=== PATIENT | female | born 1945 | race Caucasian/White ===

== ENCOUNTER 2016-03-29 09:07 | Observation (INO) | payer OTHER, MEDICARE ==
[2016-03-26 12:19] LABS: BASOPHILS 0.8 %; BASOPHILS ABSOLUTE 0.07 10/3/uL (0.0-0.16); EOSINOPHILS 3.3 %; EOSINOPHILS ABSOLUTE 0.29 10/3/uL (0.0-0.53); HEMATOCRIT 40.2 % (36.0-48.0); HEMOGLOBIN 13.4 g/dL (12.0-16.0); IMMATURE GRANULOCYTES 0.2 %; IMMATURE GRANULOCYTES ABSOLUTE 0.02 10/3/uL (0.0-0.11); LYMPHOCYTES 31.2 %; LYMPHOCYTES ABSOLUTE 2.72 10/3/uL (0.67-4.30); MEAN CORPUS HGB CONC 33.3 g/dL (32.0-36.0); MEAN CORPUSCULAR HEMOGLOB 31.8 pg (26.0-34.0); MEAN CORPUSCULAR VOLUME 95.5 fL (80-100); MEAN PLATELET VOLUME 10.4 fL (9.2-13.0); MONOCYTES 6.7 %; MONOCYTES ABSOLUTE 0.58 10/3/uL (0.21-1.20); NEUTROPHILS 57.8 %; NEUTROPHILS ABSOLUTE 5.03 10/3/uL (2.02-8.40); PLATELET COUNT 290 10/3/uL (150-400); RBC DISTRIBUTION WIDTH 13.4 % (12.0-16.0); RED CELL COUNT 4.21 10/6/uL (4.0-5.6); WHITE BLOOD CELLS 8.7 10/3/uL (4.5-10.5)
[2016-03-26 12:20] LABS: MANUAL DIFF NO %
[2016-03-26 12:35] LABS: A/G RATIO 1.1 (0.7-1.9); ALBUMIN 3.9 G/DL (3.5-5.0); ALKALINE PHOSPHATASE 88 U/L (45-117); BUN (BLOOD UREA NITROGEN) 18 MG/DL (6-23); CHLORIDE, SERUM 103 MMOL/L (96-112); CO2 (CARBON DIOXIDE) 29 MMOL/L (24-34); CREATININE 0.89 MG/DL (0.55-1.02); GFR AFRICAN AMERICAN 76 ML/MIN (>=60); GFR NON AFRICAN AMERICAN 65 ML/MIN (>=60); GLOBULIN 3.5 G/DL (2.5-4.1); GLUCOSE, SERUM 83 MG/DL (60-99); POTASSIUM, SERUM 4.6 MMOL/L (3.5-5.3); SGOT(AST) 20 U/L (5-40); SGPT(ALT) 20 U/L (5-65); SODIUM, SERUM 141 MMOL/L (135-148); TOTAL BILIRUBIN 0.5 MG/DL (0-1.2); TOTAL PROTEIN 7.4 G/DL (6.0-8.5)
--- NOTE | ~2016-03-29 | PREOPHP ---
PreOp History and Physical [address] [place]. [address] NAME: VALORIE LYNCH : 43 STATUS : PRE [facility] PAT#: [id number] AGE: 70 ADM/REG DATE : MR#: [id number] REPORT SERV DATE: 03/29/16 DICTATED BY: LAURIE RAMOS III DATE: 03/12/16 REPORT STATUS : Draft TRANSCRIBED BY: MODL DATE: 03/12/16 HISTORY OF PRESENT ILLNESS: This 70-year-old female comes to the operating room for repair of a symptomatic incisional hernia. The patient has an incisional hernia over her mid abdomen. This hernia is located at the superior aspect of her previous midline incision in the periumbilical area. The hernia is associated with local pain and discomfort. The patient has had no nausea, vomiting, or obstructive symptoms. She comes to the operating room now for repair of this hernia. The patient had a previous sigmoid colectomy performed for perforated sigmoid colon in September 2009. PAST MEDICAL HISTORY: 1. Hypothyroidism. 2. History of mitral valve repair. 3. Fibromyalgia. 4. History of sigmoid colectomy secondary to perforation in September of 2009. PAST SURGICAL HISTORY: Includes mitral valve repair in January 2015, sigmoid colectomy in September 2009, left inguinal hernia in July of 2013. ALLERGIES: NONE. MEDICATIONS: Aspirin, tramadol, Xanax, MiraLAX, meloxicam, Lasix, potassium, metoprolol, gabapentin. SOCIAL HISTORY: The patient is . She is a pharmacist. She lives in [place], [place]. She has no history of tobacco or alcohol use. FAMILY HISTORY: Remarkable for stroke. REVIEW OF SYSTEMS: The patient complains of fatigue and joint pain. Her 14-point review of systems is otherwise unremarkable. PHYSICAL EXAMINATION: GENERAL: This is a female in no acute distress. She is alert and oriented x3. VITAL SIGNS: Blood pressure 118/73, pulse 62, temperature 97.3. HEENT: Unremarkable. Cranial nerves II through XII are normal. LUNGS: Clear. CARDIAC: Normal. ABDOMEN: Soft and nontender. The patient has incisional hernia beginning in the umbilical area and continuing superiorly. The fascial defect is some 3-4 cm in size. The hernia is reducible. EXTREMITIES: Normal. ASSESSMENT: 1. This is a 70-year-old female with symptomatic incisional hernia. 2. History of mitral valve repair. 3. Fibromyalgia. PreOp History and Physical [address] [address] NAME: VALORIE LYNCH : 43 STATUS : PRE [facility] PAT#: [id number] AGE: 70 ADM/REG DATE : MR#: [id number] REPORT SERV DATE: 03/29/16 DICTATED BY: LAURIE RAMOS III DATE: 03/12/16 REPORT STATUS : Draft TRANSCRIBED BY: TODD DATE: 03/12/16 4. History of sigmoid colectomy for perforated sigmoid colon. 5. Hypothyroidism. PLAN: The patient comes to the operating room now for repair of this incisional hernia. This procedure, the risks, benefits, and alternatives, including not limited to the risk for bleeding, infection, enterotomy, injury to any abdominal structure, postop small bowel obstruction, ileus, incisional hernia recurrence, seroma formation or hematoma formation, need for use of mesh, risk of infection of the mesh or enterocutaneous fistula requiring removal of the mesh, and unforeseen complications including deep venous thrombosis, pulmonary embolus, myocardial infarction, stroke, pneumonia, and , have been fully and completely explained to the patient prior to surgery. The fact that this is a major operation with risk for major morbidity and mortality has been explained. The expected length of recovery has been explained. The patient's questions have been answered. She clearly understands the risks and agrees to surgery as planned. JUSTIN/TODD Laurie Ramos III, M.D. / [id number] CC: Crista Almanza III, M.D.
--- NOTE | ~2016-03-29 | OP ---
Record Of Operation [facility] [address] [place]. [address] NAME: VALORIE LYNCH : 43 STATUS : ADM IN [facility]#: [id number] AGE: 70 ADM/REG DATE : 03/29/16 MR#: [id number] REPORT SERV DATE: 03/29/16 DICTATED BY: LAURIE VILLATORO III DATE: 03/29/16 REPORT STATUS : Draft TRANSCRIBED BY: MODL DATE: 03/29/16 DATE OF PROCEDURE: 03/29/2016 PREOPERATIVE DIAGNOSIS: Symptomatic periumbilical incisional hernia. POSTOPERATIVE DIAGNOSIS: Symptomatic periumbilical incisional hernia. PROCEDURE: Repair of symptomatic periumbilical incisional hernia. SURGEON: Dr. Laurie Villatoro. ANESTHESIA: General with intubation. COMPLICATIONS: None. ESTIMATED BLOOD LOSS: Less than 5 mL. SPECIMENS: None. DRAINS: None. LAP AND SPONGE COUNT: Correct x3. BRIEF HISTORY: This 70-year-old female presented with a periumbilical symptomatic incisional hernia. It was felt that repair of this hernia was indicated. This procedure, the risks, benefits, and alternatives, including not limited to the risk for bleeding, infection, enterotomy, injury to abdominal structure, postop small bowel obstruction, ileus, recurrence of the hernia, seroma formation, hematoma formation, possible need for use of mesh with risk of infection to the mesh or enterocutaneous fistula requiring removal of the mesh, and unforeseen complications including deep venous thrombosis, pulmonary embolus, myocardial infarction, stroke, pneumonia, and , were explained to the patient prior to surgery. The expected length of recovery was explained. The patient's questions were answered. She fully understood the risks and agreed to surgery as planned. DESCRIPTION OF PROCEDURE: After being appropriately identified and after discussing the risks of surgery with her and her family again in the preoperative area and after carefully identifying the hernia with her help in the preoperative area, the patient was taken to the operating room and placed in the supine position on the operating room table. General anesthesia was administered. She was intubated without difficulty. The abdomen was prepped and draped sterilely in the usual fashion. After an appropriate "time-out" per JCAHO standards, a midline incision was made over the hernia, beginning just above the navel and continuing to just below the navel, over the previous incision and continued slightly above the incision. The incision was continued through the subcutaneous tissue. Hemostasis was controlled with cautery. The fascial defect was identified. The defect was fairly small, perhaps 2 cm in size. Using sharp dissection, the skin and subcutaneous tissue around the defect anteriorly was fully mobilized for several centimeters. The underside of the defect Record Of Operation [facility] [address] [place]. [address] NAME: VALORIE LYNCH : 43 STATUS : ADM IN PAT#: [id number] AGE: 70 ADM/REG DATE : 03/29/16 MR#: [id number] REPORT SERV DATE: 03/29/16 DICTATED BY: LAURIE VILLATORO III DATE: 03/29/16 REPORT STATUS : Draft TRANSCRIBED BY: TODD DATE: 03/29/16 was cleared of all adhesions around the entire periphery of the fascia posteriorly. Hemostasis was meticulously assured. The fascia itself was fairly loose and attenuated. The fascial edges were then reapproximated with interrupted #1 Prolene sutures. The fascia came together nicely with no tension. A [id number] type repair was performed. It was felt that mesh repair was not required because of the easy closure of the fascia and the laxity of the fascia. Hemostasis was assured. The subcutaneous tissue was closed with a running 3-0 chromic suture. The skin was closed with running subcuticular 4-0 Monocryl stitch. The incision was injected with 0.5% Marcaine. Dressings were applied. Anesthesia was reversed. The patient was taken to the recovery room in stable condition. She tolerated the procedure well. Her family was informed of the results of surgery. The patient will remain in the hospital for postoperative care. JUSTIN/TODD Laurie Villatoro III, M.D. / [id number] CC: Laurie Villatoro III, M.D.
[~2016-03-29 09:07] MED LIST: ADDER10 PO; ALIGN4 MG PO; ASAB PO; BIST PO; CELEXA20 PO; CITRACAL PO; CONSTULOSE PO; DCN100 PO; FISH-EPA1000 MG PO; FOLIC PO; GENTEAL 15 ML O15 ML OPH; KAPIDEX60 MG PO; KLOR-CON 1010 MEQ PO; KLOR-CON M1010 MEQ PO; L20 PO; L40 PO; LEVAQUIN750 MG PO; LEVOTHYROXIN125 MCG PO; LEVOTHYROXIN75 MCG PO; LEVOTHYROXINE PO; LEVSINTAB PO; LEVSINTAB PO/SL; LOP25 PO; MAX25 PO; MELA3 PO; MELATONIN5 M1 PO; MIRALAXPKT PO; MOBIC7.5 PO; NEUR300 PO; NEXIUM40 PO; NITROQUICK0.4 MG SL; NITROSTAT0.4 MG SL; PCET PO; PRILO PO; PROBIOTICS; Probiotics PO; SYNTHROID175 MCG PO; TYLENOL ARTH650 MG PO; ULTRAM50 PO; VITAMIN D1000 UNI1 PO; VITAMIN D31000 UNIT PO; X25 PO; [UNRECOGNIZED DRUG - OTHER] PO
== END 2016-03-30 13:12 | disposition home or self-care (01) ==
LOC: SDC 09:07 → SDC/OF 12:31 → 5SO 16:25
PROVIDERS: Surgery
PROC: 0WQF0ZZ Repair Abdominal Wall, Open Approach (ICD-10-PCS; principal; 2016-03-29 11:15)
DX: K43.2 Incisional hernia without obstruction or gangrene (principal); E03.9 Hypothyroidism, unspecified; M06.9 Rheumatoid arthritis, unspecified; K21.9 Gastro-esophageal reflux disease without esophagitis; M79.7 Fibromyalgia; F41.9 Anxiety disorder, unspecified; Z88.0 Allergy status to penicillin; Z88.2 Allergy status to sulfonamides; Z88.8 Allergy status to other drugs, medicaments and biological substances; Z98.890 Other specified postprocedural states; Z79.82 Long term (current) use of aspirin; Z79.899 Other long term (current) drug therapy; Z88.1 Allergy status to other antibiotic agents; Z98.41 Cataract extraction status, right eye; Z98.42 Cataract extraction status, left eye
CPT/HCPCS: 71020; 80053; 85025; 87641; 93005; 96374; 96375; 96376; A9270-GY; G0378; J0690; J1170; J1885; J2175; J2250; J2270; J2405; J2550; J2710; J3010